=== PATIENT | female | born 1975 | race Caucasian/White ===

== ENCOUNTER 2016-12-10 15:42 | Emergency (ER) | payer BC, MEDICARE ==
[2005-06-10 19:43] VITALS: BP 112/61
[~2016-12-10] VITALS: Ht 180.3 cm; Wt 144.1 kg
[~2016-12-10 15:42] MED LIST: ADDERALL10 MG PO; ADDERALL20 MG PO; CATAPRES 0.1MG0.1 MG PO; CLEOCIN HC150 MG/CAP PO; DILAUDID 2MG TAB2 MG PO; DOXYCYCLINE 10100 MG PO; FLEXERIL 1010 MG/TAB PO; GEODON60 MG PO; KLONOPIN 0.5MG0.5 MG PO; LAMOTRIGINE PO; LASIX 20MG TABL20 MG PO; LUNESTA3 MG PO; LUVOX100 MG PO; MELATONIN PO; MELATONIN0.3 MG; MS CONTIN30 MG PO; NORCO 325 MG-51 TAB PO; NORCO 325 MG-7.1 TAB PO; OXYCONTIN15 MG PO; OXYCONTIN30 MG PO; PAXIL 10MG10 MG PO; PEPCID 20MG TAB20 MG PO; PERCOCET 325 MG1 TA2 PO; PRILOSEC 20MG20 MG PO; PROAIR HFA0.09 MG/AC IH; PYRIDOXINE PO; RESTORIL30 MG PO; ROXICODONE30 MG PO; SEROQUEL 1100 MG/TAB PO; SEROQUEL300 MG PO; VENTOLIN0.09 MG IH
[2016-12-10 15:46] VITALS: BP 138/76; TEMP 99.4
[2016-12-10] MEDS ORDERED: DOXYCYCLINE 10100 MG PO (16:34)
[2016-12-10 16:40] VITALS: PULSE 116
== END 2016-12-10 16:41 | disposition home or self-care (01) ==
LOC: COL.ER 15:42
DX: L98.9 Disorder of the skin and subcutaneous tissue, unspecified (principal); F31.9 Bipolar disorder, unspecified; J45.909 Unspecified asthma, uncomplicated; F17.210 Nicotine dependence, cigarettes, uncomplicated; R00.0 Tachycardia, unspecified; R42 Dizziness and giddiness